=== PATIENT | female | born 1960 | race African-American/Black ===

== ENCOUNTER 2016-05-03 02:46 | Emergency (ER) | payer MEDICAID ==
[2016-05-03] MEDS ORDERED: OPTIRAY 350 100 ML VIAL HMH IV ONE (02:47)
[2016-05-03] MEDS ORDERED: SODIUM CHLORIDE 0.9% 1,000 ML ONE (09:00)
[2016-05-03] MEDS ORDERED: KETOROLAC 30 MG/ML VIAL ONE (09:00)
[2016-05-03] MEDS ORDERED: MORPHINE 4 MG/ML SYR ONE (11:12)
== END 2016-05-03 14:21 | disposition home or self-care (01) ==
LOC: ER 02:46
DX: R10.84 Generalized abdominal pain (principal); R11.2 Nausea with vomiting, unspecified; Z98.890 Other specified postprocedural states; G89.18 Other acute postprocedural pain; T81.89XA Other complications of procedures, not elsewhere classified, initial encounter; Z79.899 Other long term (current) drug therapy; I10 Essential (primary) hypertension; F41.1 Generalized anxiety disorder; E66.9 Obesity, unspecified
CPT/HCPCS: 36415; 74022; 74177; 80053; 81001; 83690; 85025; 87088; 96361; 96372; 96374; 96375

== ENCOUNTER 2016-05-05 08:03 | Inpatient (IN) | payer MEDICAID ==
[~2016-05-05] VITALS: Ht 167.6 cm; Wt 89.4 kg
[2016-05-05] VITALS (20 sets, daily range): BP systolic 111–185; RESP 13–21; TEMP 97.5–98.2; Ht 167.6 cm; Wt 89.4 kg
[~2016-05-05 08:03] MED LIST: BUPIVACA/EPI 0.25% PF 30ML NERVEBLOCK ONE; DEXAMETHASONE 4 MG/ML VIAL IV ONE; FENTANYL 100 MCG/2 ML AMP IV ONE; KETAMINE INJ 50 MG/ML VIAL IV ONE; LIDOCAINE 2% SYR 5 ML IV ONE; ONDANSETRON 4 MG VIAL IV PUSH ONE; PROPOFOL 20 ML PER ML IV ONE; PROPOFOL 50ML PER ML IV ONE; ROCURONIUM 50 MG VIAL IV ONE; SUCCINYLCHOLINE 20 MG/ML VL IV ONE
[2016-05-05] MEDS ORDERED: OPTIRAY 350 100 ML VIAL HMH IV ONE (08:04)
[2016-05-05] MEDS ORDERED: ONDANSETRON 4 MG VIAL ONE ×3 (09:08→14:27)
[2016-05-05] MEDS ORDERED: DILAUDID 1 MG/ML AMP ONE ×3 (09:08→12:02)
[2016-05-05] MEDS ORDERED: SODIUM CHLORIDE 0.9% 1,000 ML ONE (09:09)
[2016-05-05] MEDS ORDERED: CEFAZOLIN 2,000 MG in SODIUM CHLORIDE 0.9% 100 ML IV ONE (12:50)
[2016-05-05] MEDS ORDERED: ONDANSETRON INJ 8 MG in SODIUM CHLORIDE 0.9% 50 ML IV PRN (13:20)
[2016-05-05] MEDS ORDERED: ONDANSETRON 4 MG VIAL IV PUSH PRN (14:35)
[2016-05-05] MEDS: MORPHINE 2 MG/ML SYR IV PRN ×3 (14:36→21:45)
[2016-05-05] MEDS: D5-1/2-NS W/KCL 20MEQ/L 1,000 ML IV SCH (14:39)
[2016-05-05] MEDS: POTASSIUM CHLORIDE PREMIX 50 ML IV SCH ×4 (14:43→23:06)
[2016-05-05] MEDS ORDERED: MIDAZOLAM 2 MG/2 ML INJ IV ONE (15:15)
[2016-05-05] MEDS ORDERED: LACT RINGERS 1,000 ML IV SCH (15:15)
[2016-05-05] MEDS ORDERED: LIDOCAINE 1% BUFFERED 1 ML SYR INTRADERM PRN (15:15)
[2016-05-05] MEDS ORDERED: MORPHINE 4 MG/ML SYR IV PRN (17:20)
[2016-05-05] MEDS ORDERED: MORPHINE 2 MG/ML SYR IV PRN (17:20)
[2016-05-05] MEDS ORDERED: OXYCODONE 5 MG TAB PO PRN (17:20)
[2016-05-05] MEDS ORDERED: MEPERIDINE 25 MG/ML IV PRN (17:20)
[2016-05-05] MEDS ORDERED: ONDANSETRON 4 MG VIAL IV PRN ×2 (17:20→17:55)
[2016-05-05] MEDS ORDERED: SALINE FLUSH 10 ML FLUSH PRN (17:55)
[2016-05-05] MEDS: DILAUDID 1 MG/ML AMP IV PRN ×3 (18:14→18:49)
[2016-05-05] MEDS: PIPERACIL/TAZO 3.375GM/50ML 50 ML IV SCH (19:31)
[2016-05-05] MEDS: TOPIRAMATE 25 MG TAB PO SCH (19:32)
[2016-05-05] MEDS: FAMOTIDINE 20 MG INJ IV SCH (19:32)
[2016-05-05] MEDS: PAROXETINE HCL 20 MG TAB PO SCH (19:32)
[2016-05-05] MEDS: SALINE FLUSH 10 ML FLUSH SCH ×2 (19:32)
[2016-05-05] MEDS: METOPROLOL XL 25 MG TAB PO SCH (19:34)
[2016-05-06] VITALS (22 sets, daily range): BP systolic 124–179; RESP 11–26; TEMP 97.3–98.2
[2016-05-06] MEDS: D5-1/2-NS W/KCL 20MEQ/L 1,000 ML IV SCH (00:07)
[2016-05-06] MEDS: PIPERACIL/TAZO 3.375GM/50ML 50 ML IV SCH ×5 (00:07→20:27)
[2016-05-06] MEDS: SODIUM CHLORIDE 0.9% FLUSH BAG 500 ML IV SCH (04:54)
[2016-05-06] MEDS: SODIUM CHLORIDE 0.9% 1,000 ML IV SCH ×2 (05:05→12:11)
[2016-05-06] MEDS: MORPHINE 2 MG/ML SYR IV PRN ×8 (05:09→20:29)
[2016-05-06] MEDS: METOPROLOL XL 25 MG TAB PO SCH (08:38)
[2016-05-06] MEDS ORDERED: LACT RINGERS 1,000 ML IV SCH (09:10)
[2016-05-06] MEDS ORDERED: INDOMETHACIN 25 MG CAP RECTAL ONE (09:30)
[2016-05-06] MEDS: SALINE FLUSH 10 ML FLUSH SCH ×4 (12:09→20:27)
[2016-05-06] MEDS: FAMOTIDINE 20 MG INJ IV SCH ×2 (12:10→20:27)
[2016-05-06] MEDS: PAROXETINE HCL 20 MG TAB PO SCH (12:12)
[2016-05-06] MEDS: TOPIRAMATE 25 MG TAB PO SCH (20:28)
[2016-05-07] MEDS: PIPERACIL/TAZO 3.375GM/50ML 50 ML IV SCH ×5 (00:10→23:02)
[2016-05-07] MEDS: SODIUM CHLORIDE 0.9% 1,000 ML IV SCH ×3 (00:14→18:41)
[2016-05-07] MEDS: MORPHINE 2 MG/ML SYR IV PRN ×8 (01:24→23:29)
[2016-05-07 04:09] VITALS: BP_SYST 132; RESP 16; TEMP 98.3
[2016-05-07] MEDS: SODIUM CHLORIDE 0.9% FLUSH BAG 500 ML IV SCH (05:02)
[2016-05-07 07:24] VITALS: BP_SYST 158; RESP 18; TEMP 97.9
[2016-05-07] MEDS: FAMOTIDINE 20 MG INJ IV SCH ×2 (09:42→19:52)
[2016-05-07] MEDS: METOPROLOL XL 25 MG TAB PO SCH (09:43)
[2016-05-07] MEDS: PAROXETINE HCL 20 MG TAB PO SCH (09:43)
[2016-05-07] MEDS: SALINE FLUSH 10 ML FLUSH SCH ×4 (09:43→19:14)
[2016-05-07 11:22] VITALS: BP_SYST 164; RESP 18; TEMP 98
[2016-05-07 15:24] VITALS: BP_SYST 143; RESP 18; TEMP 98.1
[2016-05-07 19:24] VITALS: BP_SYST 165; RESP 16; TEMP 98.3
[2016-05-07] MEDS: TOPIRAMATE 25 MG TAB PO SCH (19:51)
[2016-05-07 23:00] VITALS: BP_SYST 169; RESP 20; TEMP 98.2
[2016-05-08] VITALS (9 sets, daily range): BP systolic 139–176; RESP 16–28; TEMP 97.6–99.9
[2016-05-08] MEDS: SODIUM CHLORIDE 0.9% FLUSH BAG 500 ML IV SCH (05:10)
[2016-05-08] MEDS: PIPERACIL/TAZO 3.375GM/50ML 50 ML IV SCH ×4 (05:36→23:47)
[2016-05-08] MEDS: SODIUM CHLORIDE 0.9% 1,000 ML IV SCH ×2 (05:36→17:51)
[2016-05-08] MEDS: MORPHINE 2 MG/ML SYR IV PRN ×5 (05:37→19:05)
[2016-05-08] MEDS: SALINE FLUSH 10 ML FLUSH SCH ×4 (08:00→20:06)
[2016-05-08] MEDS ORDERED: LIDOCAINE 1% BUFFERED 1 ML SYR INTRADERM PRN (08:30)
[2016-05-08] MEDS ORDERED: LACT RINGERS 1,000 ML IV SCH (08:30)
[2016-05-08] MEDS: METOPROLOL XL 25 MG TAB PO SCH (09:33)
[2016-05-08] MEDS: PAROXETINE HCL 20 MG TAB PO SCH (09:33)
[2016-05-08] MEDS: FAMOTIDINE 20 MG INJ IV SCH ×2 (09:34→20:05)
[2016-05-08] MEDS ORDERED: PROPOFOL 50ML PER ML IV ONE (11:08)
[2016-05-08] MEDS ORDERED: LIDOCAINE 2% SYR 5 ML IV ONE (11:08)
[2016-05-08] MEDS: TOPIRAMATE 25 MG TAB PO SCH (20:06)
[2016-05-09] MEDS: MORPHINE 2 MG/ML SYR IV PRN ×7 (00:47→20:39)
[2016-05-09 03:01] VITALS: BP_SYST 155; RESP 16; TEMP 97.9
[2016-05-09] MEDS: SODIUM CHLORIDE 0.9% 1,000 ML IV SCH ×2 (04:00→16:31)
[2016-05-09] MEDS: SODIUM CHLORIDE 0.9% FLUSH BAG 500 ML IV SCH (05:12)
[2016-05-09] MEDS: PIPERACIL/TAZO 3.375GM/50ML 50 ML IV SCH ×3 (05:48→17:39)
[2016-05-09 07:36] VITALS: BP_SYST 182; RESP 15; TEMP 98
[2016-05-09] MEDS: SALINE FLUSH 10 ML FLUSH SCH ×4 (08:32→20:00)
[2016-05-09] MEDS: PAROXETINE HCL 20 MG TAB PO SCH (09:00)
[2016-05-09] MEDS: FAMOTIDINE 20 MG INJ IV SCH ×2 (09:00→19:50)
[2016-05-09] MEDS: METOPROLOL XL 25 MG TAB PO SCH (09:00)
[2016-05-09] MEDS: OMNIPAQUE 240 MG/ML, 50 ML PO SCH ×2 (09:11→10:39)
[2016-05-09] MEDS ORDERED: KCL 20 MEQ/15 ML UDC PO ONE (10:00)
[2016-05-09 12:17] VITALS: BP_SYST 141; RESP 15; TEMP 98
[2016-05-09 15:33] VITALS: BP_SYST 153; RESP 15; TEMP 98.1
[2016-05-09] MEDS ORDERED: OPTIRAY 350 100 ML VIAL HMH IV ONE (16:24)
[2016-05-09 19:45] VITALS: BP_SYST 138; RESP 18; TEMP 97.6
[2016-05-09] MEDS: TOPIRAMATE 25 MG TAB PO SCH (19:50)
[2016-05-09 23:28] VITALS: BP_SYST 141; RESP 18; TEMP 97.9
[2016-05-10] MEDS: SODIUM CHLORIDE 0.9% 1,000 ML IV SCH ×3 (00:02→20:51)
[2016-05-10] MEDS: MORPHINE 2 MG/ML SYR IV PRN ×3 (00:03→07:27)
[2016-05-10] MEDS: PIPERACIL/TAZO 3.375GM/50ML 50 ML IV SCH ×5 (00:03→23:07)
[2016-05-10 04:21] VITALS: BP_SYST 150; RESP 18; TEMP 98.2
[2016-05-10] MEDS: SODIUM CHLORIDE 0.9% FLUSH BAG 500 ML IV SCH (05:23)
[2016-05-10] MEDS: SALINE FLUSH 10 ML FLUSH SCH ×4 (07:30→19:36)
[2016-05-10] MEDS: FAMOTIDINE 20 MG INJ IV SCH ×2 (07:32→19:33)
[2016-05-10 07:42] VITALS: BP_SYST 160; RESP 16; TEMP 98.7
[2016-05-10] MEDS: PAROXETINE HCL 20 MG TAB PO SCH (07:54)
[2016-05-10] MEDS: METOPROLOL XL 25 MG TAB PO SCH (07:54)
[2016-05-10] MEDS ORDERED: DILAUDID 1 MG/ML AMP IV PRN (09:10)
[2016-05-10] MEDS: DILAUDID 1 MG/ML AMP IV PRN ×5 (09:38→22:33)
[2016-05-10 11:21] VITALS: BP_SYST 140; RESP 16; TEMP 98.1
[2016-05-10 19:22] VITALS: BP_SYST 127; RESP 16; TEMP 98.1
[2016-05-10] MEDS: TOPIRAMATE 25 MG TAB PO SCH (19:31)
[2016-05-10 23:36] VITALS: BP_SYST 143; RESP 16; TEMP 98.1
[2016-05-11] VITALS (7 sets, daily range): BP systolic 126–173; RESP 16–18; TEMP 98–98.4
[2016-05-11] MEDS: DILAUDID 1 MG/ML AMP IV PRN ×8 (01:27→21:13)
[2016-05-11] MEDS: SODIUM CHLORIDE 0.9% FLUSH BAG 500 ML IV SCH (06:00)
[2016-05-11] MEDS: PIPERACIL/TAZO 3.375GM/50ML 50 ML IV SCH ×3 (06:39→16:57)
[2016-05-11] MEDS: SALINE FLUSH 10 ML FLUSH SCH ×4 (07:02→20:00)
[2016-05-11] MEDS: METOPROLOL XL 25 MG TAB PO SCH (08:08)
[2016-05-11] MEDS: PAROXETINE HCL 20 MG TAB PO SCH (08:08)
[2016-05-11] MEDS: FAMOTIDINE 20 MG INJ IV SCH ×2 (08:08→20:55)
[2016-05-11] MEDS: SODIUM CHLORIDE 0.9% 1,000 ML IV SCH (17:03)
[2016-05-11] MEDS ORDERED: METOPROLOL 5 MG/5 ML VIAL IV ONE (18:20)
[2016-05-11] MEDS: TOPIRAMATE 25 MG TAB PO SCH (20:56)
[2016-05-12] MEDS: DILAUDID 1 MG/ML AMP IV PRN ×9 (00:25→21:19)
[2016-05-12] MEDS: PIPERACIL/TAZO 3.375GM/50ML 50 ML IV SCH ×3 (00:25→11:57)
[2016-05-12] MEDS: SODIUM CHLORIDE 0.9% 1,000 ML IV SCH ×3 (00:28→18:25)
[2016-05-12 03:23] VITALS: BP_SYST 147; RESP 16; TEMP 97.5
[2016-05-12] MEDS: SODIUM CHLORIDE 0.9% FLUSH BAG 500 ML IV SCH (06:00)
[2016-05-12] MEDS: SALINE FLUSH 10 ML FLUSH SCH ×4 (08:00→20:21)
[2016-05-12 08:07] VITALS: BP_SYST 141; RESP 16; TEMP 97.7
[2016-05-12] MEDS: PAROXETINE HCL 20 MG TAB PO SCH (08:22)
[2016-05-12] MEDS: FAMOTIDINE 20 MG INJ IV SCH ×2 (08:23→20:21)
[2016-05-12] MEDS ORDERED: MISSING DOSE XX ONE (08:30)
[2016-05-12] MEDS: METOPROLOL XL 25 MG TAB PO SCH (09:26)
[2016-05-12] MEDS: MORPHINE 2 MG/ML SYR IV PRN ×2 (10:08→20:20)
[2016-05-12 11:08] VITALS: BP_SYST 142; RESP 16; TEMP 97.9
[2016-05-12 15:33] VITALS: BP_SYST 155; RESP 16; TEMP 98
[2016-05-12 19:56] VITALS: BP_SYST 153; RESP 16; TEMP 98.1
[2016-05-12] MEDS: TOPIRAMATE 25 MG TAB PO SCH (20:20)
[2016-05-12 23:26] VITALS: BP_SYST 159; RESP 18; TEMP 97.8
[2016-05-13] MEDS: SODIUM CHLORIDE 0.9% 1,000 ML IV SCH ×3 (02:44→20:33)
[2016-05-13] MEDS: MORPHINE 2 MG/ML SYR IV PRN ×2 (02:52→10:20)
[2016-05-13 03:57] VITALS: BP_SYST 148; RESP 16; TEMP 97.9
[2016-05-13] MEDS: SODIUM CHLORIDE 0.9% FLUSH BAG 500 ML IV SCH (03:58)
[2016-05-13] MEDS: DILAUDID 1 MG/ML AMP IV PRN ×2 (06:27→15:28)
[2016-05-13 07:23] VITALS: BP_SYST 152; RESP 16; TEMP 98.1
[2016-05-13] MEDS: SALINE FLUSH 10 ML FLUSH SCH ×4 (08:00→20:34)
[2016-05-13] MEDS: FAMOTIDINE 20 MG INJ IV SCH ×2 (08:15→20:33)
[2016-05-13] MEDS: METOPROLOL XL 25 MG TAB PO SCH (08:18)
[2016-05-13] MEDS: PAROXETINE HCL 20 MG TAB PO SCH (08:18)
[2016-05-13 11:14] VITALS: BP_SYST 150; RESP 16; TEMP 98
[2016-05-13 14:52] VITALS: BP_SYST 165; RESP 16; TEMP 97.9
[2016-05-13 19:54] VITALS: BP_SYST 129; RESP 20; TEMP 97.7
[2016-05-13] MEDS: TOPIRAMATE 25 MG TAB PO SCH (20:35)
[2016-05-14 00:25] VITALS: BP_SYST 147; RESP 20; TEMP 97.5
[2016-05-14 04:59] VITALS: BP_SYST 155; RESP 16; TEMP 98.3
[2016-05-14] MEDS: SODIUM CHLORIDE 0.9% FLUSH BAG 500 ML IV SCH ×2 (05:03→23:34)
[2016-05-14] MEDS: SODIUM CHLORIDE 0.9% 1,000 ML IV SCH (06:09)
[2016-05-14 07:42] VITALS: BP_SYST 182; RESP 16; TEMP 98.8
[2016-05-14] MEDS: MORPHINE 2 MG/ML SYR IV PRN (07:55)
[2016-05-14] MEDS: SALINE FLUSH 10 ML FLUSH SCH ×5 (08:00→20:27)
[2016-05-14] MEDS: FAMOTIDINE 20 MG INJ IV SCH ×2 (08:57→20:27)
[2016-05-14] MEDS: METOPROLOL XL 25 MG TAB PO SCH (08:59)
[2016-05-14] MEDS: PAROXETINE HCL 20 MG TAB PO SCH (08:59)
[2016-05-14] MEDS ORDERED: ACETAMINOPHEN 325 MG TAB PO PRN (09:45)
[2016-05-14] MEDS ORDERED: SODIUM CHLORIDE 0.9% FLUSH BAG 500 ML IV PRN (09:55)
[2016-05-14] MEDS ORDERED: SALINE FLUSH 10 ML FLUSH PRN (09:55)
[2016-05-14 11:59] VITALS: BP_SYST 148; RESP 16; TEMP 98.3
[2016-05-14] MEDS: DILAUDID 1 MG/ML AMP IV PRN (15:15)
[2016-05-14 15:55] VITALS: BP_SYST 166; RESP 16; TEMP 98.2
[2016-05-14] MEDS: TOPIRAMATE 25 MG TAB PO SCH (20:26)
[2016-05-14 20:28] VITALS: BP_SYST 133; RESP 16; TEMP 98
[2016-05-15 00:01] VITALS: BP_SYST 128; RESP 20; TEMP 97.8
[2016-05-15 03:40] VITALS: BP_SYST 147; RESP 20; TEMP 98.1
[2016-05-15 07:25] VITALS: BP_SYST 154; RESP 16; TEMP 98.2
[2016-05-15] MEDS: FAMOTIDINE 20 MG INJ IV SCH (08:00)
[2016-05-15] MEDS: SALINE FLUSH 10 ML FLUSH SCH ×3 (08:00)
[2016-05-15 09:01] VITALS: BP_SYST 154; RESP 16; TEMP 98.2
[2016-05-15] MEDS: PAROXETINE HCL 20 MG TAB PO SCH (09:14)
[2016-05-15] MEDS: METOPROLOL XL 25 MG TAB PO SCH (09:14)
== END 2016-05-15 09:54 | disposition home or self-care (01) | DRG 981 ==
LOC: ENRESERVDT → ENRESERVTM → ER 08:03 → 5THE 14:21 → ER 18:01 → EMR 18:19 → 5THE 19:47
PROVIDERS: ADMIT Surgery; ATTEND Surgery
PROC: 0FQ Hepatobiliary System and Pancreas, Repair (ICD-10-PCS; 2016-05-05)
PROC: 0W9G40Z Drainage of Peritoneal Cavity with Drainage Device, Percutaneous Endoscopic Approach (ICD-10-PCS; principal; 2016-05-05 16:54)
PROC: 0F798DZ Dilation of Common Bile Duct with Intraluminal Device, Via Natural or Artificial Opening Endoscopic (ICD-10-PCS; 2016-05-06)
PROC: 0DC98ZZ Extirpation of Matter from Duodenum, Via Natural or Artificial Opening Endoscopic (ICD-10-PCS; 2016-05-08)
DX: K91.89 Other postprocedural complications and disorders of digestive system (principal); K65.9 Peritonitis, unspecified; E87.6 Hypokalemia; I10 Essential (primary) hypertension; F41.9 Anxiety disorder, unspecified; G47.30 Sleep apnea, unspecified; K21.9 Gastro-esophageal reflux disease without esophagitis; F32.9 Major depressive disorder, single episode, unspecified; M19.90 Unspecified osteoarthritis, unspecified site; D64.9 Anemia, unspecified
CPT/HCPCS: 36415; 71010; 71020; 71260; 74022; 74177; 74330; 78226; 80048; 80053; 81001; 82150; 82550; 83690; 83735; 84484; 85025; 85379; 85610; 85730; 87088; 88104; 93005; 96361; 96372; 96374; 96375; 96376